=== PATIENT | female | born 1945 | race Caucasian/White ===

== ENCOUNTER → 2025-08-17 14:28 | Outpatient (REF) | payer OTHER, SELFPAY | LOC: RCS 14:28 | PROVIDERS: ATTENDING PHYSICIAN Internal Medicine Cardiovascular Disease; FAMILY PHYSICIAN Family Medicine | DX: I25.10 Atherosclerotic heart disease of native coronary artery without angina pectoris (principal); I50.30 Unspecified diastolic (congestive) heart failure; R06.09 Other forms of dyspnea | CPT/HCPCS: 93306; Q9950 ==